=== PATIENT | male | born 1945 | race Caucasian/White ===

== ENCOUNTER 2019-07-14 09:57 | Outpatient (CLI) | payer MEDICARE, OTHER ==
--- NOTE | 2019-07-14 12:07 | RAD ---
2 VIEW CHEST: Date: 07/14/19 HISTORY: Dyspnea. FINDINGS: Lung lynn appear clear. No infiltrate or vascular congestion. Heart size upper normal. Postop kaba otomy change. IMPRESSION: No acute abnormality. POS: OFF
== END 2019-07-14 09:58 | disposition home or self-care (01) ==
LOC: RAD 09:57
PROVIDERS: ATTEND Internal Medicine Critical Care Medicine
DX: R06.00 Dyspnea, unspecified (principal)
CPT/HCPCS: 71046